=== PATIENT | male | born 1995 | race Caucasian/White ===

== ENCOUNTER 2022-05-16 08:02 | Emergency (ER) | payer BC, SELFPAY ==
[2022-05-16 08:06] VITALS: BP 161/90; PULSE 73; RESP 18; TEMP 36.6; O2SAT 97
--- NOTE | 2022-05-16 08:26 | ED.SKABFB ---
HPI - Skin/Abscess/Foreign Bdy General Chief complaint: Skin/Abscess/Foreign Body Stated complaint: bug bite to back of head - seen in Urgent Care Time Seen by Provider: 05/16/22 08:05 History of Present Illness HPI narrative: This is a 26-year-old male with past medical history of chickenpox as a child, presenting to the emergency department for pain and rash to the back of the scalp. He states 4 days ago, he went to the urgent care for pain in the back of the scalp, seem to be a bug bite. He was started on antibiotics for this. However, he states his pain is progressed in that area with new itching just to the left of it. He describes the pain as 6 out of 10, sharp, constant, nonradiating and not associated with weakness, numbness, change or loss of vision, change or loss of hearing. He states he is noted similar itching just to the left of his nose area of pain that is similar to his initial rash. Related Data Allergies Allergy/AdvReac Type Severity Reaction Status Date / Time No Known Allergies Allergy Verified 05/16/22 08:04 Review of Systems Review of Systems: CONSTITUTIONAL: Denies fever, chills, or sweats. EYES: Denies visual changes, redness, or discharge. ENT: Denies rhinorrhea, congestion, sore throat, or otalgia. CARDIOVASCULAR: Denies chest pain, palpitations, or edema. RESPIRATORY: Denies cough or dyspnea. GASTROINTESTINAL: Denies abdominal pain, nausea, vomiting, or diarrhea. GENITOURINARY: Denies dysuria or hematuria. SKIN: Painful rash and itching to the back of the scalp MUSCULOSKELETAL: Denies back pain, joint pain, or myalgia. NEUROLOGIC: Denies headache, numbness, dizziness, or weakness. PSYCHIATRIC: Denies anxiety or depression. Exam Narrative: GENERAL: Well-appearing, well-nourished, and in no acute distress. HEAD: Normocephalic, atraumatic. EYES: PERRLA and EOMI. ENT: Nares clear, no rhinorrhea or epistaxis. Mucous membranes moist. Oropharynx without tonsillar hypertrophy exudate or other lesions. Bilateral TMs pearly metcalf nonbulging, no noted erythema, swelling or vesicular rash of the ears NECK: Supple. Mild bilateral posterior lymphadenopathy, No masses. No carotid bruits or JVD CHEST: Clear to auscultation. No respiratory distress. No wheezes rales or rhonchi HEART: Regular rate and rhythm. No murmur heard. Normal peripheral pulses. ABDOMEN: Soft, nontender, nondistended, normal active bowel sounds. EXTREMITIES: Normal range of motion. No edema. SKIN: An erythematous rash, approximately 2 x 3 cm is noted to the occipital scalp just within the hairline, with small macules and what appear to be early vesicles. There are 2 similar 5 mm rashes just lateral to the main rash NEURO: No focal deficits. Alert and oriented x3. PSYCH: Normal mood and affect. Course Vital Signs Vital signs: Vital Signs Temperature 97.9 F 05/16/22 08:06 Pulse Rate 73 05/16/22 08:06 Respiratory Rate 18 05/16/22 08:06 Blood Pressure 161/90 H 05/16/22 08:06 Pulse Oximetry 97 05/16/22 08:06 Oxygen Delivery Room Air 05/16/22 08:06 Temperature 97.9 F 05/16/22 08:06 Pulse Rate 73 05/16/22 08:06 Respiratory Rate 18 05/16/22 08:06 Blood Pressure 161/90 H 05/16/22 08:06 Pulse Oximetry 97 05/16/22 08:06 Oxygen Delivery Room Air 05/16/22 08:06 MDM - Skin/Abscess/Foreign Bdy MDM Narrative Medical decision making narrative: Plan: Bedside ultrasound, pain control -The patient's presentation and exam are consistent with shingles. Bedside ultrasound performed by me did not show a fluid collection consistent with abscess. Will treat with antiviral and pain control. Discussed return and emergency precautions including signs/symptoms of Marichuy Tirado syndrome and herpes ophthalmicus. Patient and is comfortable with plan. All questions answered to his satisfaction. Differential Diagnosis Differential diagnosis: Likely abscess of skin or subcutaneous tissue, herpes zoster, cellulitis and inse
[2022-05-16] MEDS: GABAPENTIN 100 MG CAPSULE PO (08:41)
== END 2022-05-16 08:45 | disposition home or self-care (01) ==
LOC: ANHED 08:35
PROVIDERS: Emergency Provider Preventive Medicine Aerospace Medicine; PCP Internal Medicine
DX: B02.9 Zoster without complications (principal)
CPT/HCPCS: 99283; A9270

== ENCOUNTER 2025-03-03 08:02 | Outpatient (CLI) | payer BC, SELFPAY ==
--- OUTSIDE RECORDS SUMMARY | 2025-03-03 08:12 | XMS_ITS | Clinical Summary ---
Author Organization [facility] Address [address] [place] [address] Care Team Providers Care Radio Engineer Name Role Phone Unknown, Provider Primary Care Provider Unavaila ble Source Comments [facility],non-owned Affiliates and Associated Physician Practices is amultiple site organization consisting of ambulatory clinics and hospital sitesin [place], [place], [place] and [place]. This disclosure is being madepursuant to the Care Everywhere program and may not contain all information available regarding this patient. Last updated 18.[facility] Allergies No known active allergies Medications * Be aware that medications may not be up to date on this document. Alwaysverify current medications with the patient. 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 Gender Identity Not on file Sexual Orientation Not on file Last Filed Vital Signs Vital Sign Reading Time Taken Comments Blood Pressure 128/80 09/23/2021 11:16 AM CONTRACT PROJECT MANAGER Pulse 71 09/23/2021 11:16 AM CONTRACT PROJECT MANAGER Temperature 37.1 C (98.8 F) 09/23/2021 11:16 AM CONTRACT PROJECT MANAGER Respiratory Rate 16 09/23/2021 11:16 AM CONTRACT PROJECT MANAGER Oxygen Saturation 97% 09/23/2021 11:16 AM CONTRACT PROJECT MANAGER Inhaled Oxygen Concentration - - Weight 95.3 kg (210 lb) 09/23/2021 11:16 AM CONTRACT PROJECT MANAGER Height 180.3 cm (5' 11) 09/23/2021 11:16 AM CONTRACT PROJECT MANAGER Body Mass Index 29.29 09/23/2021 11:16 AM CONTRACT PROJECT MANAGER Plan of Treatment Health Maintenance Due Date Last Done Comments HIV SCREENING 2008 HEPATITIS C SCREENING 08/03/2011 DTAP/TDAP/TD VACCINES (1 - Tdap) 2012 HEPATITIS B VACCINE (1 of 3 - 19+ 3-dose series) 2012 COVID-19 VACCINE (2 - 2023-2 5 season) 2024 12/07/2020 DEPRESSION SCREENING 10/05/2024 INFLUENZA VACCINE (Season Ended) 2025 ZOSTER VACCINE (1 of 2) 2043 HIB VACCINE Aged Out No longer eligi ble based on patient's age to complete this topic HPV VACCINE Aged Out No longer eligi ble based on patient's age to complete this topic MENINGOCOCCAL (Group B) VACC INE SHARED DECISION-MAKING Aged Out No longer eligibl e based on patient's age to complete this topic MENINGOCOCCAL GROUPS A/C/Y/W VACCINE Aged Out No longer eligible b ased on patient's age to complete this topic PNEUMOCOCCAL VACCINE Aged Out No long er eligible based on patient's age to complete this topic Insurance ANTH Care Teams Radio Engineer Relationship Specialty Start Date End Date Unknown, Provider PCP - General 11/08/16
[2025-03-03 16:33] LABS: Eosinophils Absolute Auto 0.1 K/mm3 (0-0.3); Eosinophils Percent Auto 1.6 % (0-4.4); Hematocrit 45.5 % (42.0-52.0); Hemoglobin 15.1 g/dL (14.0-18.0); Immature Granulocyte Absolute 0.01 K/mm3 (0.00-0.031); Immature Granulocyte Percent A 0.3 % (0-0.5); Lymphocytes Absolute Auto 1.21 K/mm3 (0.9-3.2); Lymphocytes Percent Auto 38.9 % (18.3-44.2); Mean Corpuscular HGB Conc 33.2 g/dl (32-36); Mean Corpuscular Hemoglobin 29.2 pg (26-34); Mean Corpuscular Volume 87.8 fl (80-100); Mean Platelet Volume 10.2 fl (7.4-10.4); Monocytes Absolute Auto 0.3 K/mm3 (0.1-0.6); Monocytes Percent Auto 10.9 % (2.6-8.5); Neutrophils Absolute Auto 1.5 K/mm3 (1.3-6.7); Neutrophils Percent Auto 47.3 % (45.5-73.1); Platelet Count Result 173 k/mm3 (150-375); Red Blood Count 5.18 M/mm3 (4.6-6.20); Red Cell Distribution Width 13.5 % (11.5-14.5); White Blood Count 3.1 K/mm3 (4.5-10.0)
[2025-03-03 18:29] LABS: Vitamin D 25 Hydroxy 16.8 ng/mL
[2025-03-03 19:58] LABS: Alanine Aminotransferase 55 U/L (6-50); Albumin Level 4.1 g/dL (3.5-5.1); Alkaline Phosphatase 55 U/L (38-126); Anion Gap 6 mmol/L (4-12); Aspartate Amino Transferase 64 U/L (17-59); Bilirubin,Total 0.7 mg/dL (0.2-1.3); Blood Urea Nitrogen 12 mg/dL (9-20); Calcium 9.7 mg/dL (8.4-10.2); Carbon Dioxide 31 mmol/L (22-30); Chloride 102 mmol/L (98-107); Cholesterol 191 mg/dL (0-200); Estimated Glomerular Filt Rate > 60; Glucose 82 mg/dL (65-110); HDL Direct 83 mg/dL; Potassium 4.5 mmol/L (3.4-5.0); Sodium 139 mmol/L (137-145); Triglycerides 71 mg/dL (<150)
[2025-03-03 20:09] LABS: LDL Cholesterol Direct 72 mg/dL
== END 2025-03-03 08:03 | disposition home or self-care (01) ==
LOC: ANHGOSHLAB 08:04
PROVIDERS: PCP Internal Medicine; Visit Provider Nurse Practitioner
DX: R42 Dizziness and giddiness (principal); Z13.220 Encounter for screening for lipoid disorders
CPT/HCPCS: 36415; 80053; 80061; 82306; 84443; 85025